=== PATIENT | female | born 1970 | race Caucasian/White ===

== ENCOUNTER 2016-03-23 03:12 | Emergency (ER) | payer OTHER ==
[2016-03-23 03:45] LABS: % IMMATURE GRANULYOCYTES 0.2 % (0.0-1.1); ABSOLUTE IMMATURE GRANULOCYTES 0.01 10^3/uL (0.00-0.10); ADD DIFF? NO; ADD MORPH? NO; ADD SCAN? NO; ATYPICAL LYMPHOCYTE FLAG 20 (0-99); FRAGMENT RBC FLAG 0 (0-99); HEMATOCRIT 45.2 % (38.0-47.0); HEMOGLOBIN 15.3 g/dL (12.6-16.3); LEFT SHIFT FLG 0 (0-99); LIPEMIA HEMOLYSIS FLAG 90 (0-99); MEAN CELL HEMOGLOBIN 31.5 pg (27.9-34.1); MEAN CELL HEMOGLOBIN CONCENTR. 33.8 g/dL (32.4-36.7); MEAN PLATELET VOLUME 10.4 fL (8.7-11.7); PLATELET CLUMPS FLAG 10 (0-99); PLATELET COUNT 226 10^3/uL (150-400); RED BLOOD CELL COUNT 4.86 10^6/uL (4.18-5.33); RED CELL DISTRIBUTION WIDTH 11.9 % (11.5-15.2)
[2016-03-23 03:52] LABS: ANION GAP 13 mEq/L (8-16); CARBON DIOXIDE 25 mEq/l (22-31); CHLORIDE 105 mEq/L (97-110); CREATININE 0.8 mg/dL (0.6-1.0); GLOMERULAR FILTRATION RATE > 60; GLUCOSE 107 mg/dL (70-100); POTASSIUM 3.8 mEq/L (3.5-5.2); SODIUM 143 mEq/L (134-144)
[2016-03-23 04:04] VITALS: RESP 16
--- NOTE | 2016-03-23 04:35 | EDPHY ---
HPI/HX/ROS/PE/MDM Narrative: Chief complaint: Seizure HPI: 45-year-old woman states she has a past medical history seizure disorder, chronic inflammatory process for which she is being treated which might be secondary to Lyme disease. Patient states she believes she may have had a seizure this morning. She woke up from sleep feeling disoriented and thinks she bit her lip. Does not have any trauma to her tongue. Has not had any incontinence. She states she is same episode happened several nights ago. She has been treated for seizure disorder in the past but is not currently on any antiepileptic medications that she has had adverse reactions everyone that she has tried. She does get occasional awake seizures which last a few seconds during the course of the day and these seem to been increasing for the last couple of days as well. She is currently under the treatment by physician treating her for a chronic inflammatory process that the attributed to the ovary accumulation of by a toxins in her system. She is taking daily cholestyramine as a treatment to remove these toxins from her system. She believes that this medication might be contributing to her her seizures. She does not currently have a neurologist. Is not taking any other medications. Denies any fevers or chills. No head injuries. No nausea or vomiting. No chest pain or shortness of breath. ROS: 10 point Review of Systems is negative except as noted in the HPI. Physical exam: Gen: Awake, Alert, No Distress HEENT: Nose: no rhinorrhea Eyes: PERRLA, EOMI Mouth: Moist mucosa Neck: Supple, no JVD Chest: nontender, lungs clear to auscultation Heart: S1, S2 normal, no murmur Abd: Soft, non-tender, no guarding Back: no CVA tenderness, no midline tenderness Ext: no edema, non-tender Skin: no rash Neuro: CN II-XII intact, Sensation grossly intact, Strength 5/5 in bilateral upper and lower extremities ED Course: 45-year-old woman with a possible seizure this morning. She is not acidotic. Her electrolytes, CBC, and urinalysis are entirely normal. She is otherwise well -appearing. She is awake, alert, in no acute distress. Plan will be to discharge her to home with seizure precautions. She will follow up with her primary care physician in next 2-3 days. She should also follow up with Neurology and I suggest that her primary care physician refer her to a for this as well. - Data Points Laboratory Results: Laboratory Results 03/23/16 03:30 03/23/16 03:30 03/23/16 03:30 WBC 4.69 10^3/uL (3.80-9.50) RBC 4.86 10^6/uL (4.18-5.33) Hgb 15.3 g/dL (12.6-16.3) Hct 45.2 % (38.0-47.0) MCV 93.0 fL (81.5-99.8) MCH 31.5 pg (27.9-34.1) MCHC 33.8 g/dL (32.4-36.7) RDW 11.9 % (11.5-15.2) Plt Count 226 10^3/uL (150-400) MPV 10.4 fL (8.7-11.7) Neut % (Auto) 60.7 % (39.3-74.2) Lymph % (Auto) 28.4 % (15.0-45.0) [place] % (Auto) 8.3 % (4.5-13.0) Eos % (Auto) 1.3 % (0.6-7.6) Baso % (Auto) 1.1 % (0.3-1.7) Nucleat RBC Rel Count 0.0 % (0.0-0.2) Absolute Neuts (auto) 2.85 10^3/uL (1.70-6.50) Absolute Lymphs (auto) 1.33 10^3/uL (1.00-3.00) Absolute Monos (auto) 0.39 10^3/uL (0.30-0.80) Absolute Eos (auto) 0.06 10^3/uL (0.03-0.40) Absolute Basos (auto) 0.05 10^3/uL (0.02-0.10) Absolute Nucleated RBC 0.00 10^3/uL (0-0.01) Immature Gran % 0.2 % (0.0-1.1) Immature Gran # 0.01 10^3/uL (0.00-0.10) Sodium 143 mEq/L (134-144) Potassium 3.8 mEq/L (3.5-5.2) Chloride 105 mEq/L (97-110) Carbon Dioxide 25 mEq/l (22-31) Anion Gap 13 mEq/L (8-16) BUN 14 mg/dL (7-23) Creatinine 0.8 mg/dL (0.6-1.0) Estimated GFR > 60 Glucose 107 H mg/dL (70-100) Calcium 10.0 mg/dL (8.5-10.4) General Time Seen by Provider: 03/23/16 03:23 Initial Vital Signs: Initial Vital Signs Temperature (C) 36.6 C 03/23/16 03:20 Heart Rate 83 03/23/16 03:20 Respiratory Rate 16 03/23/16 03:20 Blood Pressure 105/75 03/23/16 03:20 O2 Sat (%) 100 03/23/16 03:20 O2 Delivery Mode Room Air Allergies/Adverse Reactions: carbamazepine [From Tegretol] Allergy (Verified 01/04/16 03:33) codeine Allergy (Verified 01/04/16 03:33) gluten Allergy (Verified 01/04/16 03:33) grapefruit Allergy (Verified 01/04/16 03:41) guaifenesin Allergy (Verified 01/04/16 03:41) lamotrigine [From Lamictal] Allergy (Verified 01/04/16 03:33) levetiracetam [From Keppra] Allergy (Verified 01/04/16 03:33) Milk Containing Products [dairy] Allergy (Verified 01/04/16 03:33) phenytoin sodium [From Dilantin] Allergy (Verified 01/04/16 03:33) phenytoin sodium extended [From Dilantin] Allergy (Verified 01/04/16 03:33) pork derived (porcine) Allergy (Verified 01/04/16 03:33) potato Allergy (Verified 01/04/16 03:33) shellfish derived Allergy (Verified 01/04/16 03:33) Sulfa (Sulfonamide Antibiotics) Allergy (Verified 01/04/16 03:33) tomato Allergy (Verified 01/04/16 03:33) walnut Allergy (Verified 01/04/16 03:33) almonds Allergy (Uncoded 01/04/16 03:33) maple syrup Allergy (Uncoded 01/04/16 03:33) night shade Allergy (Uncoded 01/04/16 03:33) sugar Allergy (Uncoded 01/04/16 03:33) Home Medications: Medication Instructions Recorded Albuterol 01/04/16 Claritin 01/04/16 Departure - Departure Disposition: Home, Routine, Self-Care Clinical Impression: Seizure disorder Condition: Good Instructions: Epilepsy (ED) Additional Instructions: Follow up with your primary care physician in the next 1-2 days for re- evaluation. Please have your primary care physician refer you to a neurologist for further evaluation for possible seizure disorder. Return to the emergency department for any concerns.
[2016-03-23 05:09] VITALS: BP 93/69; PULSE 74; TEMP 98.1; O2SAT 99
== END 2016-03-23 05:08 | disposition home or self-care (01) ==
LOC: EDUNIT#
DX: G40.909 Epilepsy, unspecified, not intractable, without status epilepticus (principal)

== ENCOUNTER 2016-10-25 20:30 | Emergency (ER) | payer OTHER ==
[2016-10-25 20:50] VITALS: RESP 16; TEMP 98.2
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
[2016-10-25 23:17] VITALS: BP 115/75; PULSE 79; O2SAT 97
== END 2016-10-25 23:15 | disposition home or self-care (01) ==
LOC: EDUNIT#
DX: S20.212A Contusion of left front wall of thorax, initial encounter (principal); G40.909 Epilepsy, unspecified, not intractable, without status epilepticus; J45.909 Unspecified asthma, uncomplicated; Z87.891 Personal history of nicotine dependence; V43.52XA Car driver injured in collision with other type car in traffic accident, initial encounter; Y92.410 Unspecified street and highway as the place of occurrence of the external cause; Y99.8 Other external cause status; Y93.89 Activity, other specified
CPT/HCPCS: 82947-QW

== ENCOUNTER 2017-11-28 09:47 | Emergency (ER) | payer OTHER ==
--- NOTE | 2017-11-28 10:22 | EDPHY ---
H & P Time Seen by Provider: 11/28/17 09:55 HPI/ROS: CHIEF COMPLAINT: "I think I have a seizure, I feel postictal" HISTORY OF PRESENT ILLNESS: The patient presents to the ED by paramedics after she feels that she likely had a seizure earlier today. The patient reports she feels postictal. She complains of a very mild headache. The patient had been on Topamax for seizures which she recently stopped taking secondary to concerns about it affecting her cognition. The patient denies any acute traumatic complaints such as neck pain, extremity pain, tongue laceration, chest pain or difficulty breathing. The patient denies incontinence. She reports she takes no additional prescription medications aside from Topamax. REVIEW OF SYSTEMS: A comprehensive 10 point review of systems is otherwise negative aside from elements mentioned in the history of present illness. Source: Patient Exam Limitations: No limitations - Medical/Surgical History Hx Asthma: Yes Hx Chronic Respiratory Disease: No Hx Diabetes: No Hx Cardiac Disease: No Hx Renal Disease: No Hx Cirrhosis: No Hx Alcoholism: No Hx HIV/AIDS: No Hx Splenectomy or Spleen Trauma: No Other PMH: partial deafness, lyme's disease, sz, ibs, celiac's disease, herpes - Social History Smoking Status: Former smoker - Physical Exam Exam: General Appearance: Alert, no distress Eyes: Pupils equal and round no pallor or injection ENT, Mouth: Mucous membranes moist Respiratory: There are no retractions, lungs are clear to auscultation Cardiovascular: Regular rate and rhythm Gastrointestinal: Abdomen is soft and nontender, no masses, bowel sounds normal Neurological: A&O, normal motor function, normal sensory exam, normal cranial nerves Skin: Warm and dry, no rashes Musculoskeletal: Neck is supple nontender Extremities: symmetrical, full range of motion Constitutional: Initial Vital Signs Temperature (C) 36.8 C 11/28/17 10:30 Heart Rate 84 11/28/17 10:30 Respiratory Rate 18 11/28/17 10:30 Blood Pressure 102/81 H 11/28/17 10:30 O2 Sat (%) 97 11/28/17 10:30 O2 Delivery Mode Room Air Allergies/Adverse Reactions: carbamazepine [From Tegretol] Allergy (Verified 11/28/17 10:33) codeine Allergy (Verified 11/28/17 10:33) gluten Allergy (Verified 11/28/17 10:33) grapefruit Allergy (Verified 11/28/17 10:33) guaifenesin Allergy (Verified 11/28/17 10:33) lamotrigine [From Lamictal] Allergy (Verified 11/28/17 10:33) levetiracetam [From Keppra] Allergy (Verified 11/28/17 10:33) Milk Containing Products [dairy] Allergy (Verified 11/28/17 10:33) phenytoin sodium [From Dilantin] Allergy (Verified 11/28/17 10:33) phenytoin sodium extended [From Dilantin] Allergy (Verified 11/28/17 10:33) pork derived (porcine) Allergy (Verified 11/28/17 10:33) potato Allergy (Verified 11/28/17 10:33) shellfish derived Allergy (Verified 11/28/17 10:33) Sulfa (Sulfonamide Antibiotics) Allergy (Verified 11/28/17 10:33) tomato Allergy (Verified 11/28/17 10:33) walnut Allergy (Verified 11/28/17 10:33) almonds Allergy (Uncoded 11/28/17 10:33) maple syrup Allergy (Uncoded 11/28/17 10:33) night shade Allergy (Uncoded 11/28/17 10:33) sugar Allergy (Uncoded 11/28/17 10:33) Home Medications: Medication Instructions Recorded Albuterol 01/04/16 Claritin 01/04/16 Medical Decision Making ED Course/Re-evaluation: The patient presents to the ED after a possible unwitnessed seizure. The patient has no evidence of traumatic injury on exam. The patient's laboratory studies are within normal limits. The patient was observed in the emergency department for several hours without recurrent seizure. At this point time I do feel the patient can be discharged home with customary seizure aftercare instructions. She is typically followed by a neurologist at [facility] and she is comfortable following up with them as an outpatient. The patient has been instructed not to drive or participate in dangerous activities until cleared to do so by her neurologist. Differential Diagnosis: Differential diagnosis considered includes seizure, status epilepticus, traumatic brain injury, occult trauma - Data Points Laboratory Results: Laboratory Results 11/28/17 10:43 11/28/17 10:43 11/28/17 11/28/17 10:43 10:43 WBC 8.22 10^3/uL 10^3/uL (3.80-9.50) RBC 4.49 10^6/uL 10^6/uL (4.18-5.33) Hgb 14.1 g/dL g/dL (12.6-16.3) Hct 42.7 % % (38.0-47.0) MCV 95.1 fL fL (81.5-99.8) MCH 31.4 pg pg (27.9-34.1) MCHC 33.0 g/dL g/dL (32.4-36.7) RDW 11.9 % % (11.5-15.2) Plt Count 220 10^3/uL 10^3/uL (150-400) MPV 10.4 fL fL (8.7-11.7) Neut % (Auto) 81.0 % H % (39.3-74.2) Lymph % (Auto) 8.4 % L % (15.0-45.0) [place] % (Auto) 9.7 % % (4.5-13.0) Eos % (Auto) 0.1 % L % (0.6-7.6) Baso % (Auto) 0.4 % % (0.3-1.7) Nucleat RBC Rel Count 0.0 % % (0.0-0.2) Absolute Neuts (auto) 6.66 10^3/uL H 10^3/uL (1.70-6.50) Absolute Lymphs (auto) 0.69 10^3/uL L 10^3/uL (1.00-3.00) Absolute Monos (auto) 0.80 10^3/uL 10^3/uL (0.30-0.80) Absolute Eos (auto) 0.01 10^3/uL L 10^3/uL (0.03-0.40) Absolute Basos (auto) 0.03 10^3/uL 10^3/uL (0.02-0.10) Absolute Nucleated RBC 0.00 10^3/uL 10^3/uL (0-0.01) Immature Gran % 0.4 % % (0.0-1.1) Immature Gran # 0.03 10^3/uL 10^3/uL (0.00-0.10) Sodium 141 mEq/L mEq/L (135-145) Potassium 3.7 mEq/L mEq/L (3.3-5.0) Chloride 105 mEq/L mEq/L (97-110) Carbon Dioxide 26 mEq/l mEq/l (22-31) Anion Gap 10 mEq/L mEq/L (8-16) BUN 5 mg/dL L mg/dL (7-23) Creatinine 0.6 mg/dL mg/dL (0.6-1.0) Estimated GFR > 60 Glucose 90 mg/dL mg/dL (70-100) Calcium 9.7 mg/dL mg/dL (8.5-10.4) Departure - Departure Disposition: Home, Routine, Self-Care Clinical Impression: Seizure disorder Condition: Good Instructions: Epilepsy (ED) Additional Instructions: 1. No driving, dangerous activities such as riding a ski lift, swimming in a pool or other behavior that could put you or someone else at risk in the event of a recurrent seizure. You will need to be cleared by a neurologist to resume these activities. 2. Please return to the ED for recurrent seizure, headache, numbness, weakness, altered mental status or other concerns. 3. Please follow up with your neurologist at the [facility] this week to schedule a follow-up appointment and discuss your decision to stop taking Topamax.
[2017-11-28 11:00] LABS: PLATELET COUNT 220 10^3/uL (150-400)
[2017-11-28 12:49] VITALS: BP 113/82
== END 2017-11-28 12:50 | disposition home or self-care (01) ==
LOC: EDUNIT#
DX: G40.909 Epilepsy, unspecified, not intractable, without status epilepticus (principal); Z87.891 Personal history of nicotine dependence